=== PATIENT | female | born 1975 | race Caucasian/White ===

== ENCOUNTER → 2019-10-24 | Outpatient (CLI) | payer OTHER | LOC: COL.RAD 12:12 | DX: M50.222 Other cervical disc displacement at C5-C6 level (principal); M48.02 Spinal stenosis, cervical region; M89.9 Disorder of bone, unspecified | CPT/HCPCS: A9585 ==

== ENCOUNTER → 2020-04-30 | Outpatient (CLI) | payer OTHER | LOC: COL.RAD 04-19 09:00 | DX: M51.16 Intervertebral disc disorders with radiculopathy, lumbar region (principal); M47.816 Spondylosis without myelopathy or radiculopathy, lumbar region; M47.817 Spondylosis without myelopathy or radiculopathy, lumbosacral region; M85.68 Other cyst of bone, other site ==

== ENCOUNTER → 2020-08-20 | Outpatient (CLI) | payer OTHER | LOC: COL.RAD 09:18 | DX: M50.21 Other cervical disc displacement, high cervical region (principal); G95.9 Disease of spinal cord, unspecified; M48.02 Spinal stenosis, cervical region | CPT/HCPCS: A9585 ==

== ENCOUNTER → 2020-09-18 | Outpatient (CLI) | payer OTHER | LOC: COL.PUL 13:00 | DX: R06.02 Shortness of breath (principal); Z87.891 Personal history of nicotine dependence | CPT/HCPCS: J7674 ==

== ENCOUNTER → 2020-11-12 | Outpatient (CLI) | payer OTHER | LOC: COL.CARD 09:46 | DX: R41.0 Disorientation, unspecified (principal) ==

== ENCOUNTER → 2020-12-19 | Outpatient (CLI) | payer OTHER | LOC: COL.RAD 09:00 | DX: M51.36 Other intervertebral disc degeneration, lumbar region (principal) ==

== ENCOUNTER 2022-05-16 14:54 | Outpatient (RCR) | payer OTHER | END 2022-06-09 | disposition home or self-care (01) | LOC: WSOH | DX: S63.615A Unspecified sprain of left ring finger, initial encounter (principal); Y99.0 Civilian activity done for income or pay; E03.9 Hypothyroidism, unspecified ==

== ENCOUNTER → 2022-05-29 | Outpatient (CLI) | payer OTHER | LOC: COL.RAD 10:54 | DX: K44.9 Diaphragmatic hernia without obstruction or gangrene (principal); Z72.0 Tobacco use ==